=== PATIENT | female | born 1975 | race Caucasian/White ===

== ENCOUNTER 2020-07-15 08:24 | Emergency (ER) | payer MEDICARE, MEDICAID ==
[~2020-07-15] VITALS: Ht 154.9 cm; Wt 46.0 kg
[2020-07-15 08:28] VITALS: BP 116/86
[2020-07-15 10:02] LABS: BASOPHILS % 0.7 % (0.0-2.0); EOSINOPHILS % 1.2 % (0.0-5.0); HEMATOCRIT. 42.6 % (36.0-48.0); HEMOGLOBIN. 14.2 g/dL (12.0-16.0); LYMPHOCYTES % 23.4 % (20.0-50.0); MEAN CORPUSCULAR HEMOGLOBIN 31.1 pg (28.0-32.0); MEAN CORPUSCULAR VOLUME 93.1 fL (81.0-99.0); MEAN PLATELET VOLUME 7.8 fl (7.4-10.4); MONOCYTES % 7.2 % (2.0-8.0); NEUTROPHILS % 67.5 % (40.0-76.0); PLATELET 340 x1000/uL (130-400); RED BLOOD CELL COUNT 4.57 mill/uL (4.2-5.4); RED CELL DISTRIBUTION WIDTH 13.3 % (11.6-14.6)
[2020-07-15 10:07] LABS: CHLORIDE 109 mEq/L (98-107)
[2020-07-15 10:11] LABS: ETHANOL BLOOD < 10 mg/dL
[2020-07-15 10:13] LABS: HCG SCREEN NEGATIVE
== END 2020-07-15 10:38 | disposition home or self-care (01) ==
LOC: ER 08:39
DX: F15.129 Other stimulant abuse with intoxication, unspecified (principal); R45.851 Suicidal ideations; R03.0 Elevated blood-pressure reading, without diagnosis of hypertension
CPT/HCPCS: 36415; 80053; 80307; 80320; 80329; 84703; 85025; 99283; G0480

== ENCOUNTER 2020-07-15 11:24 | Emergency (ER) | payer MEDICARE, MEDICAID ==
[~2020-07-15] VITALS: Ht 154.9 cm; Wt 55.0 kg
[2020-07-15 12:37] LABS: CLARITY URINE TURBID (CLEAR); COLOR URINE DARK YELLOW (YELLOW); KETONES URINE TRACE (NEGATIVE); LEUKOCYTE ESTERASE URINE TRACE (NEGATIVE); NITRITE URINE NEGATIVE (NEGATIVE); OCCULT BLOOD URINE TRACE (NEGATIVE); PROTEIN URINE TRACE (NEGATIVE); SPECIFIC GRAVITY URINE 1.043 (1.005-1.030)
[2020-07-15 12:49] LABS: *BARBITURATES SCREEN URINE NEGATIVE (NEGATIVE); OPIATES URINE SCREEN NEGATIVE (NEGATIVE)
[2020-07-15 12:50] LABS: PHENCYCLIDINE URINE SCREEN NEGATIVE (NEGATIVE)
[2020-07-15 12:53] LABS: *BENZODIAZEPINES SCREEN URINE NEGATIVE (NEGATIVE)
[2020-07-15 12:54] LABS: *COCAINE SCREEN URINE NEGATIVE (NEGATIVE); METHADONE URINE SCREEN NEGATIVE (NEGATIVE)
[2020-07-15 12:57] LABS: *AMPHETAMINES SCREEN URINE PRESUMTIVE POSITIVE (NEGATIVE); CANNABINOID URINE SCREEN PRESUMTIVE POSITIVE (NEGATIVE)
[2020-07-15] MEDS ORDERED: LORAZEPAM 1MG TABLET PO ONE (14:15)
[2020-07-15] MEDS ORDERED: OLANZAPINE 5MG TABLET ODT PO ONE (14:15)
[2020-07-15] MEDS ORDERED: DIPHENHYDRAMINE 50MG/ML VIAL IV ONE (15:30)
[2020-07-15] MEDS ORDERED: OLANZAPINE 10 MG/VIAL IM ONE (15:30)
[2020-07-16 03:07] LABS: BASOPHILS % 0.7 % (0.0-2.0); EOSINOPHILS % 5.5 % (0.0-5.0); HEMATOCRIT. 36.5 % (36.0-48.0); HEMOGLOBIN. 12.5 g/dL (12.0-16.0); LYMPHOCYTES % 41.6 % (20.0-50.0); MEAN CORPUSCULAR HEMOGLOBIN 31.4 pg (28.0-32.0); MEAN CORPUSCULAR VOLUME 91.8 fL (81.0-99.0); MEAN PLATELET VOLUME 7.9 fl (7.4-10.4); MONOCYTES % 9.4 % (2.0-8.0); NEUTROPHILS % 42.8 % (40.0-76.0); PLATELET 280 x1000/uL (130-400); RED BLOOD CELL COUNT 3.97 mill/uL (4.2-5.4); RED CELL DISTRIBUTION WIDTH 13.2 % (11.6-14.6)
[2020-07-16 03:10] LABS: CHLORIDE 111 mEq/L (98-107)
[2020-07-16 03:14] LABS: ETHANOL BLOOD < 10 mg/dL
[2020-07-16 03:46] LABS: HCG SCREEN NEGATIVE
[2020-07-16] MEDS ORDERED: OLANZAPINE 5MG TABLET ODT PO ONE (15:15)
[2020-07-16] MEDS ORDERED: LORAZEPAM 1MG TABLET PO ONE (15:15)
[2020-07-17 00:04] VITALS: BP 108/83
== END 2020-07-17 00:20 | disposition short-term general hospital (02) ==
LOC: ER 11:24
DX: F15.129 Other stimulant abuse with intoxication, unspecified (principal); R45.851 Suicidal ideations; Z20.822 Contact with and (suspected) exposure to COVID-19; F12.90 Cannabis use, unspecified, uncomplicated; F20.9 Schizophrenia, unspecified; Z78.1 Physical restraint status; Z75.1 Person awaiting admission to adequate facility elsewhere; Z91.14 Patient's other noncompliance with medication regimen
CPT/HCPCS: 80305; 81003; 87635; 96372; 96374; 99285; C9803; J1200; J3490

== ENCOUNTER 2021-04-17 18:32 | Emergency (ER) | payer MEDICARE, MEDICAID ==
[~2021-04-17] VITALS: Ht 160 cm; Wt 64.0 kg
[2021-04-17] MEDS ORDERED: LORAZEPAM 2MG/ML CPJ IM STA (20:12)
[2021-04-17] MEDS ORDERED: DIPHENHYDRAMINE 50MG/ML VIAL IM STA (20:12)
[2021-04-17] MEDS ORDERED: HALOPERIDOL LACTATE 5MG/ML VIAL IM STA (20:12)
[2021-04-17] MEDS ORDERED: SODIUM CHLORIDE 0.9% 1,000 ML IV ONE (20:15)
[2021-04-17 22:04] LABS: BASOPHILS % 0.5 % (0.0-2.0); EOSINOPHILS % 0.4 % (0.0-5.0); HEMATOCRIT. 37.3 % (36.0-48.0); HEMOGLOBIN. 12.7 g/dL (12.0-16.0); MEAN CORPUSCULAR HEMOGLOBIN 31.5 pg (28.0-32.0); MEAN CORPUSCULAR VOLUME 92.7 fL (81.0-99.0); MEAN PLATELET VOLUME 8.1 fl (7.4-10.4); MONOCYTES % 7.8 % (2.0-8.0); NEUTROPHILS % 76.3 % (40.0-76.0); PLATELET 310 x1000/uL (130-400); RED BLOOD CELL COUNT 4.02 mill/uL (4.2-5.4); RED CELL DISTRIBUTION WIDTH 14.6 % (11.6-14.6)
[2021-04-17 22:15] LABS: CHLORIDE 108 mEq/L (98-107)
[2021-04-17 22:19] LABS: ETHANOL BLOOD < 10 mg/dL
[2021-04-17] MEDS ORDERED: POTASSIUM CHLORIDE 20MEQ TABLET SR PO ONE (22:30)
[2021-04-17 22:40] LABS: CLARITY URINE CLEAR (CLEAR); COLOR URINE DARK YELLOW (YELLOW); KETONES URINE 4+ (NEGATIVE); LEUKOCYTE ESTERASE URINE TRACE (NEGATIVE); NITRITE URINE NEGATIVE (NEGATIVE); OCCULT BLOOD URINE NEGATIVE (NEGATIVE); PROTEIN URINE 1+ (NEGATIVE); SPECIFIC GRAVITY URINE 1.028 (1.005-1.030)
[2021-04-17 22:54] LABS: *BARBITURATES SCREEN URINE NEGATIVE (NEGATIVE); *BENZODIAZEPINES SCREEN URINE NEGATIVE (NEGATIVE); *COCAINE SCREEN URINE NEGATIVE (NEGATIVE); METHADONE URINE SCREEN NEGATIVE (NEGATIVE); OPIATES URINE SCREEN NEGATIVE (NEGATIVE)
[2021-04-17 22:55] LABS: PHENCYCLIDINE URINE SCREEN NEGATIVE (NEGATIVE)
[2021-04-17 22:58] LABS: HCG SCREEN NEGATIVE
[2021-04-17 23:01] LABS: *AMPHETAMINES SCREEN URINE PRESUMTIVE POSITIVE (NEGATIVE); CANNABINOID URINE SCREEN PRESUMTIVE POSITIVE (NEGATIVE)
[2021-04-18] MEDS ORDERED: ARIPIPRAZOLE 5MG TABLET PO SCH (11:00)
[2021-04-18] MEDS ORDERED: MIRTAZAPINE 15MG TABLET PO SCH (21:00)
[2021-04-19 00:57] VITALS: BP 122/81
== END 2021-04-19 00:58 ==
LOC: ER 18:32
DX: R45.851 Suicidal ideations (principal); E87.6 Hypokalemia; Z20.822 Contact with and (suspected) exposure to COVID-19; Z86.59 Personal history of other mental and behavioral disorders
CPT/HCPCS: 36415; 80053; 80305; 80307; 80320; 80329; 81003; 81025; 84703; 85025; 96360; 96361; 96372; 99285; C9803; J1200; J1630; J2060; J7030; U0003; U0005; G0480